=== PATIENT | male | born 2000 | race Caucasian/White ===

== ENCOUNTER 2020-07-21 17:05 | Emergency (ER) | payer SELFPAY ==
[2020-07-21 17:27] VITALS: BP 132/81; PULSE 75; RESP 18; TEMP 36.7; O2SAT 100; BMI 19.8
--- NOTE | 2020-07-21 17:53 | HMH.EDUTC ---
[facility] [place] Clinical Impression: Sore throat (viral) Diarrhea Qualifiers: Diarrhea type: unspecified type Qualified Code(s): R19.7 - Diarrhea, unspecified Disposition: Home, Self-Care Condition on Discharge: Good Instructions: Sore Throat, Diarrhea Additional Instructions: ? Avoid fruit juices, as these do not replace minerals and can actually increase diarrhea. ? Children and adults can use sports drinks to replenish electrolytes. Younger children and infants should use products formulated for children, like oral rehydration solutions. ? Eat food in small amounts and let your stomach recover. ? Get lots of rest. You may feel tired or weak. ? No greasy or fried foods for the next 24-48 hours BRAT diet Bananas Rice Apples and [place] ? Make sure to drink plenty of liquids ? Return if needed ? Straight to ER if any life threatening symptoms ? You was given an outpatient order for diarrhea panel, please collect specimen and bring back to outpatient lab then call back to the [facility] or follow up with family doctor for results ? Follow up with family doctor in the next 48-72 hours if no improvement or any worsening of symptoms Follow up with Family Doctor if no improvement or any worsening of symptoms Referrals: PCP,No [Primary Care Provider] - As needed Forms: Work/School Release Time of Disposition: 18:31 Medical Decision Making - Tang Inquiry Pt receiving controlled substance: No Tang was queried for this patient: No Vital Signs: 07/21/20 17:27 Temperature 98.0 F Temperature Source Oral Pulse Rate [Radial] 75 Respiratory Rate 18 Blood Pressure [Right Arm] 132/81 Blood Pressure Mean [Right Arm] 98 Blood Pressure Source [Right Arm] Automatic Cuff Blood Pressure Position [Right Arm] Sitting 02 Sat by Pulse Oximetry 100 Oxygen Delivery Method Room Air - Lab Data Lab results reviewed: Yes: I reviewed the patient's lab results. [facility] [place] - General Stated complaint: Nausea, cough, stomach hurts Time Seen by Provider: 07/21/20 17:53 Mode of Arrival: Ambulatory Source of Information: Patient Limitations: No Limitations Description of Symptoms (Recalled from Triage Doc. by RN): Patient states that he had the poops earlier HEENT Symptoms (Recalled from RN notes): No Resp Symptoms (Recalled from RN notes): No Skin Symptoms (Recalled from RN notes): No MS Symptoms (Recalled from RN notes): No Functional Status (Recalled from RN notes): wnl - History of Present Illness Provider Complaint: Patient states that he had diarrhea earlier today and having some upset stomach but no vomiting States that his daughter had something similar to this a couple days ago but now is doing better but he was worried he may strep so wanted to get checked and get a note for work - Related Data Previous Rx's Medication Instructions Recorded cephALEXin [cephALEXin 500mg 500 mg PO Q8 #21 cap 08/12/18 capsule] Allergies Allergy/AdvReac Type Severity Reaction Status Date / Time acetaminophen [From TYLENOL] Allergy Intermediate I-RASH Unverified 09/12/17 15:40 - Worker's Comp Is this a Worker's Comp case?: No [facility] History - Hepatitis A Screen Drug use history?: No High risk sexual behaviors?: No History of sexually transmitted infection?: No Currently employed?: No Childcare worker?: No Do you have indoor plumbing?: Yes Do you have electricity?: Yes Attestation statement:: This patient has been screened for Hepatitis A risk factors. I have reviewed the patient's past medical history: Yes - Social History Alcohol Intake: never Occupational Status: employed ROS Obtained: Yes All systems reviewed & no additional complaints, Yes Systems reviewed as appropriate & no additional complaints - Constitutional Constitutional: Reports system reviewed and no additional complaints, except as docu, Denies body ache, Denies fatigue, Denies fever(s) - ENT Ears, Nose, Mouth, and Throat: Reports system reviewed and no
[2020-07-21 18:46] VITALS: BP 132/81; PULSE 75; RESP 18; TEMP 36.7; O2SAT 100
[2020-07-21 20:03] LABS: UTC Strep Screen (Rapid) Negative (Negative)
== END 2020-07-21 18:47 | disposition home or self-care (01) ==
PROVIDERS: Emergency Provider Nurse Practitioner
DX: J02.9 Acute pharyngitis, unspecified (principal)
CPT/HCPCS: 87880; 99201

== ENCOUNTER 2022-05-03 07:16 | Emergency (ER) | payer SELFPAY ==
[2022-05-03 07:28] VITALS: BP 121/64; PULSE 77; RESP 18; TEMP 36.9; O2SAT 99; BMI 20.3
--- NOTE | 2022-05-03 07:35 | PC.NURSE ---
pt is refusing to have any needles near him, states he will pass out, explained we could lay him back on the bed or even do other things to occupy him while we get blood. pt states no he does not want any needles. Explained that we need an IV for a ct scan without that we would be unable to do one, again pt states he does not want one.
[2022-05-03 07:43] VITALS: BP 121/64; PULSE 84; O2SAT 100
[2022-05-03 07:49] LABS: Coronavirus 19, PCR Not Detected (NotDetected); Influenza A, PCR Not Detected (NotDetected); Influenza B, PCR Not Detected (NotDetected)
[2022-05-03 07:51] LABS: Microscopic, Urine URINE MICROSCOPIC (MICROSCOPIC)
[2022-05-03 07:53] LABS: Appearance,Urine CLEAR (Clear); Bilirubin,Urine Negative (Negative); Blood, Urine Negative (Negative); Color,Urine YELLOW (Yellow); Glucose,Urine (UA) Negative (Negative); Ketones,Urine Negative (Negative); Leukocyte Esterase,Urine Negative (Negative); Nitrate,Urine Negative (Negative); PH,Urine 6.5 (5.0-8.5); Protein,Urine Negative (Negative)
[2022-05-03 08:12] LABS: Bacteria,Urine Trace /lpf
--- NOTE | 2022-05-03 08:17 | HMH.EDGENADL ---
ED Disposition Clinical Impression: Gastroenteritis Disposition: Home, Self-Care Condition on Discharge: Good Instructions: DI for Viral Gastroenteritis -- Adult Prescriptions: Ondansetron [Zofran 4mg ODT] 4 mg PO BIDP PRN #10 tab PRN Reason: Nausea Transmission Status: Pending to [facility] Referrals: Provider,MD Lois [Primary Care Provider] - Jensen Bartlett MD [Emergency Provider] - - Critical Care Critical Care Time: No Attestation: On 05/03/22, the high probability of a clinically significant, sudden or life threatening deterioration of the following system(s) required my full and direct attention, intervention and personal management. The time I documented below is in addition to time spent performing reported procedures but includes the following listed in this critical care notation. Medical Decision Making - Medical Records Medical records reviewed: Yes: I reviewed the patient's medical records. - Tang Inquiry Pt receiving controlled substance: No Vital Signs: 05/03/22 07:28 05/03/22 07:43 Temperature 98.4 F Temperature Source Oral Pulse Rate 84 Pulse Rate [Left Radial] 77 Respiratory Rate 18 Blood Pressure 121/64 Blood Pressure [Right Arm] 121/64 Blood Pressure Mean [Right Arm] 83 Blood Pressure Source [Right Arm] Automatic Cuff Blood Pressure Position [Right Arm] Sitting 02 Sat by Pulse Oximetry 99 100 Oxygen Delivery Method Room Air - Lab Data Lab Results 05/03/22 07:40: Urine Color Yellow, Urine Appearance Clear, Urine pH 6.5, Ur Specific [place] 1.020, Urine Protein Negative, Urine Glucose (UA) Negative, Urine Ketones Negative, Urine Blood Negative, Urine Nitrate Negative, Urine Bilirubin Negative, Urine Urobilinogen 1.0, Ur Leukocyte Esterase Negative, Urine RBC None, Urine WBC None, Ur Squamous Epith Cells None, Urine Bacteria Trace Orders (Tests/Meds): ED MEDICATIONS Generic Name Dose Route Start Last Admin Trade Name Freq PRN Reason Stop Dose Admin Sodium Chloride 1,000 mls @ 999 mls/hr 05/03/22 07:45 05/03/22 07:39 Sod Chlor 0.9% 1000ml Bag IV 05/03/22 08:45 Not Given .Q1H1M JUSTYN Sodium Chloride 10 ml 05/03/22 07:32 Sodium Chloride 0.9% 10ml Flush Syringe IV 06/02/22 07:31 NEEDED PRN Maintain IV Site Discontinued Medications Generic Name Dose Route Start Last Admin Trade Name Yasmany PRN Reason Stop Dose Admin Ketorolac Tromethamine 30 mg 05/03/22 07:32 05/03/22 07:38 Ketorolac 30mg/Ml Vial IV 05/03/22 07:33 Not Given ONCE ONE Ondansetron HCl 4 mg 05/03/22 07:32 05/03/22 07:42 Ondansetron 4mg/2ml Vial IV 05/03/22 07:33 Not Given ONCE ONE Ondansetron HCl 4 mg 05/03/22 07:38 05/03/22 07:40 Ondansetron 4mg Odt SL 05/03/22 07:39 4 mg ONCE ONE Administration ORDERS Category Date Time Status CT abdomen pelvis w con Stat Cat Scan 05/03/22 07:32 Ordered Amylase Stat Lab 05/03/22 07:32 Ordered Complete Blood Count Auto Diff Stat Lab 05/03/22 07:32 Ordered Comprehensive Metabolic Panel Stat Lab 05/03/22 07:32 Ordered Lipase Stat Lab 05/03/22 07:32 Ordered Rapid PCR Covid and Flu A/B Stat Lab 05/03/22 07:45 Received - Reevaluation(s) Time: 08:19 Reevaluation #1: On reevaluation, the patient is feeling better. Repeat abdominal examination is benign. He is tolerating oral intake. Patient be discharged with short course of medication. Needs to follow-up with PCP or ER in 48 hours for repeat abdominal examination. Given strict return precautions. Verbalized understanding. Medical Decision Narrative: 22-year-old male presented to the emergency department with some nausea vomiting diarrhea. Patient symptoms are consistent with gastroenteritis. He has no evidence of acute abdomen or peritonitis at this time. Nontoxic appearing. Patient is declining any IV therapy, laboratory studies or imaging. He would like to just symptomatic oral treatme
[2022-05-03 08:25] VITALS: BP 133/85; PULSE 70; RESP 18; TEMP 36.7; O2SAT 98
== END 2022-05-03 08:26 | disposition home or self-care (01) ==
PROVIDERS: Emergency Provider Emergency Medicine
DX: K52.9 Noninfective gastroenteritis and colitis, unspecified (principal)
CPT/HCPCS: 81001; 99283; C9803; U0003; U0005

== ENCOUNTER 2022-05-25 10:29 | Emergency (ER) | payer SELFPAY ==
[2022-05-25 11:00] VITALS: BP 124/77; PULSE 94; RESP 16; TEMP 36.7; O2SAT 99; BMI 19.8
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
[2022-05-25 11:44] VITALS: BMI 19.8
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
--- NOTE | 2022-05-25 11:59 | PC.NURSE ---
pt in radiology
[2022-05-25 12:19] VITALS: BP 126/88; PULSE 85; RESP 19; O2SAT 99
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
[2022-05-25 14:08] VITALS: BP 119/77; PULSE 88; O2SAT 95
--- NOTE | 2022-05-25 14:08 | PC.NURSE ---
no needs at this time
[2022-05-25 14:18] VITALS: BP 119/74; PULSE 74; RESP 16; TEMP 36.7; O2SAT 99
== END 2022-05-25 14:20 | disposition home or self-care (01) ==
PROVIDERS: Emergency Provider Emergency Medicine
DX: S00.12XA Contusion of left eyelid and periocular area, initial encounter (principal); S00.11XA Contusion of right eyelid and periocular area, initial encounter; Y04.0XXA Assault by unarmed brawl or fight, initial encounter; Y92.009 Unspecified place in unspecified non-institutional (private) residence as the place of occurrence of the external cause
CPT/HCPCS: 70450; 70486; 72125; 73080; 99285

== ENCOUNTER 2025-05-29 20:56 | Emergency (ER) | payer OTHER, SELFPAY ==
[2025-05-29 21:01] VITALS: BP 151/93; PULSE 83; RESP 18; TEMP 36.8; O2SAT 100; BMI 19.0
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
[2025-05-29] MEDS: AMOXICILLIN/CLAVULANATE POTASSIUM 875/125MG TABLET 1 EACH PO (21:16)
[2025-05-29 21:17] VITALS: BP 151/93; PULSE 83; RESP 18; TEMP 36.7; O2SAT 95
== END 2025-05-29 21:25 | disposition left against medical advice (07) ==
PROVIDERS: Emergency Provider Emergency Medicine
DX: K04.7 Periapical abscess without sinus (principal); L02.01 Cutaneous abscess of face
CPT/HCPCS: 99283